=== PATIENT | male | born 1945 | race Caucasian/White ===

== ENCOUNTER 2018-05-09 22:42 | Emergency (ER) | payer OTHER ==
[~2018-05-09] VITALS: Ht 170.2 cm; Wt 74.8 kg
--- NOTE | 2018-05-09 23:55 | ED GI/GU/ABDOMINAL COMPLAINT ---
History of Present Illness General Chief Complaint: General Adult Stated Complaint: PT NEEDS TO URINE WAS HERE YESTERDAY Source: patient Exam Limitations: no limitations Vital Signs & Intake/Output Vital Signs & Intake/Output Vital Signs Date Time Temp Pulse Resp B/P B/P Pulse O2 O2 Flow FiO2 Mean Ox Delivery Rate 05/10 0206 98.9 102 18 158/90 07 Room Air 05/09 2256 98.7 99 18 134/90 99 Room Air ED Intake and Output 05/10 0000 05/09 1200 Intake Total Output Total Balance Patient 165 lb Weight Weight Reported by Patient Measurement Method Allergies Coded Allergies: No Known Allergies (05/08/18) Triage Note: PT FROM HOME C/O UNABLE TO VOID ON OWN, SEEN HERE IN ER FOR THE PROBLEM. PT STATES HE WAS STRAIGHT CATHED LAST NIGHT AND THEN THIS MORNING HE STRAIGHT CATHED HIMSELF. HE PERFORMED A CATHETERIZATION 2X PER DAY. WHEN PT ATTEMPTED TO THIS EVENING 30 MINS PRIOR PT UNABLE TO ADVANCE. PTS LAST VOID WAS 1000. PT STATES PRESSURE AND PAIN IN PELVIC AREA. Triage Nurses Notes Reviewed? yes Onset: Abrupt Duration: day(s): (1), constant, continues in ED, getting worse Timing: recent history Quality/Severity: fullness Severity Numbers: 8 Location: suprapubic Radiation: no radiation Activities at Onset: none Prior Abdominal Problems: similar symptoms Past Sexual History: Unobtainable at this time No Modifying Factors: none HPI: 72-year-old male history of hypertension hyperlipidemia prostate cancer BPH presents for evaluation of urinary retention. Patient has a neurogenic bladder from a surgical complication. He has been straight cathing himself since. Last night he was unable to pass a catheter so he came to the emergency department where he was able to be straight cath. His urinalysis was negative for infection he was ultimately sent home. He was able to catheterize himself today but was unable to tonight. He reports a feeling of needing to void along with super pubic pressure. No back pain fever chest pain or shortness of breath. (Dontrell Pena) Reconcile Medications Sildenafil Citrate (Sildenafil) 20 MG TABLET 1 TAB PO DAILY HTNH (Reported) (Kosta Valentin DO) Past History Travel History Traveled to [place] past 21 day No Medical History Any Pertinent Medical History? see below for history Neurological: NONE EENT: NONE Cardiovascular: hypertension Respiratory: NONE Gastrointestinal: COLOSTOMY Hepatic: NONE Renal: "KNICKED BLADDER" Musculoskeletal: NONE Psychiatric: NONE Endocrine: diabetes Cancer(s): colon/rectal cancer, prostate cancer Surgical History Surgical History: colectomy Psychosocial History What is your primary language Icelandic Tobacco Use: Quit >30 days ago Family History Hx Contributory? No (Dontrell Pena) Review of Systems Review of Systems Constitutional: Reports: no symptoms. EENTM: Reports: no symptoms. Respiratory: Reports: no symptoms. Cardiovascular: Reports: no symptoms. GI: Reports: no symptoms. Genitourinary: Reports: see HPI, hesitation, pain. Musculoskeletal: Reports: no symptoms. Skin: Reports: no symptoms. Neurological/Psychological: Reports: no symptoms. Hematologic/Endocrine: Reports: no symptoms. Immunologic/Allergic: Reports: no symptoms. All Other Systems: Reviewed and Negative (Dontrell Pena) Physical Exam Physical Exam General Appearance: well developed/nourished, no apparent distress, alert, awake Head: atraumatic, normal appearance Eyes: Bilateral: normal appearance, EOMI. Ears, Nose, Throat, Mouth: moist mucous membrane Neck: normal inspection, supple, full range of motion Respiratory: normal breath sounds, chest non-tender, no respiratory distress, lungs clear Cardiovascular: regular rate/rhythm, normal peripheral pulses Peripheral Pulses: 2+ radial (R), 2+ radial (L) Gastrointestinal: normal bowel sounds, soft, no organomegaly, tenderness ( SUPRAPUBIC FULLNESS) Back: normal inspection, normal range of motion, no vertebral tenderness Extremities: normal range of motion Neurologic/Psych: no motor/sensory deficits, awake, alert, oriented x 3, normal gait Skin: intact, normal color, warm/dry Core Measures ACS in differential dx? No Sepsis Present: No Sepsis Focused Exam Completed? No (Dontrell Pean) Progress Differential Diagnosis: prostatitis, ureterolithiasis, urinary retention, urethritis, UTI/pyelo Plan of Care: Orders Procedure Date/time Status Lugo, Insertion/Removal/Asses 05/09 2319 Active CULTURE,URINE 05/09 2319 Active URINALYSIS 05/09 2319 Active Microbiology 05/09 2319 URINE ROUT: Urine Culture - ORD Patient is here for evaluation of inability to pass a straight catheter. He has suprapubic distention and fullness. Multiple attempts were made here to place a Lugo by multiple nurses. Also they tried a Coude catheter without any ability to drain urine. A call was placed to urology initially after midnight without any call back. A second call was placed around 1 AM still waiting for a call back. Patient SIGN out to Dr. Valentin pending urology Initial ED EKG: none Hand-Off Endorsed To: Kosta Valentin DO Endorsed Time: 0120 Pending: consult (UROLOGY) (Dontrell Pena) Departure Departure Disposition: STILL A PATIENT Condition: Stable Clinical Impression Primary Impression: Urine retention Referrals: Isreal SALAZAR,Segundo Reinoso (PCP/Family) Departure Forms: Customer Survey General Discharge Information (Dontrell Pena) Departure Comments 05/10/18 3:26 AM Patient was signed out to me by Dontrell Barrios. He was seen and evaluated by Dr. Betancourt. Lugo catheter was placed. He will be discharged on Keflex 250 mg twice a day for 7 days. He will follow-up with his urologist on Friday. He was discharged with a leg bag. (Kosta Valentin DO)
[2018-05-10 02:06] VITALS: BP 158/90
[2018-05-10] MEDS ORDERED: SILDENAFIL20 M1 PO (03:21)
[2018-05-10] MEDS ORDERED: FLOMAX0.4 M1 PO (03:29)
[2018-05-10] MEDS ORDERED: KEFLEX250 M1 PO (03:30)
--- NOTE | 2018-05-10 03:36 | Cons- Urology ---
General Information and HPI Consulting Request Date of Consult: 05/10/18 Requested By: DO Valentin Gregory-TITA Reason for Consult: retention Source of Information: patient Exam Limitations: no limitations History of Present Illness: Pt with hx colo-rectal ca post APR with "knicked bladder" with aguilar for 90 days. CaP with brachytherapy prior. unable to self cath twice this weekend and now here for aguilar placement via seldinger technique with 16fr algaaciq tip. 1800 cc clear yellow urine drained. Allergies/Medications Allergies: Coded Allergies: No Known Allergies (05/08/18) Home Med List: Cephalexin (Keflex) 250 MG CAPSULE 1 CAP PO 4 TIMES/DAY UTI Sildenafil Citrate (Sildenafil) 20 MG TABLET 1 TAB PO DAILY HTNH (Reported) Tamsulosin HCl (Flomax) 0.4 MG CAP.ER.24H 1 CAP PO DAILY URINE RETENTION Current Medications: Current Medications Sig/Zach Start time Last Medication Dose Route Stop Time Status Admin Lidocaine 0 .STK-MED ONE 05/10 0004 DC TOP Past History Medical History Neurological: NONE EENT: NONE Cardiovascular: hypertension Respiratory: NONE Gastrointestinal: COLOSTOMY Hepatic: NONE Renal: "KNICKED BLADDER" Musculoskeletal: NONE Psychiatric: NONE Endocrine: diabetes Cancer(s): colon/rectal cancer, prostate cancer Surgical History Pertinent Surgical History: colectomy Functional Ability ADLs Independent: dressing, eating, toileting, bathing. Ambulation: independent IADLs Independent: shopping, housework, finances, food prep, telephone, transportation , medication admin. Employment History Employment: Employed Profession/Employer: [employer] Retired? no Review of Systems Review of Systems Constitutional: Reports: see HPI. EENTM: Denies: no symptoms. Cardiovascular: Denies: no symptoms. Respiratory: Denies: no symptoms. GI: Denies: no symptoms. Genitourinary: Reports: see HPI, pain. Musculoskeletal: Denies: no symptoms. Skin: Denies: no symptoms. Exam & Diagnostic Data Vital Signs and I&O Vital Signs Date Time Temp Pulse Resp B/P B/P Pulse O2 O2 Flow FiO2 Mean Ox Delivery Rate 05/10 0206 98.9 102 18 158/90 07 Room Air 05/09 2256 98.7 99 18 134/90 99 Room Air Intake & Output 05/10 0800 05/10 0000 05/09 1600 05/09 0805/09 0000 05/08 1600 Intake Total Output Total 1600 Balance -1600 Output, Urine 1600 Patient 165 lb Weight Weight Reported by Patient Measurement Method Physical Exam General Appearance: well developed/nourished Head: atraumatic Eyes: Bilateral: normal appearance. 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 Naidu for plan Copies To: Itzel SALAZAR,Jacques Betancourt MD,Narinder Consult Acknowledgment - Thank you for your consult request. 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 Naidu for future plan.
== END 2018-05-10 03:43 ==
LOC: ERH 22:42
DX: R33.9 Retention of urine, unspecified (principal)
CPT/HCPCS: 81001; 87086